=== PATIENT | male | born 1980 | race African-American/Black ===

== ENCOUNTER 2021-06-28 18:56 | Emergency (ER) | payer MEDICAID ==
[2021-06-28 19:07] VITALS: BP 138/81
--- NOTE | 2021-06-28 19:28 | ED Physician Documentation ---
PD HPI FOCAL NEURO - Stated complaint Stated Complaint: HEAD PX/DIZZY - Chief complaint Chief Complaint: Neuro - History obtained from History obtained from: Patient - Additional information Additional information: Otherwise healthy 41-year-old gentleman quit drinking about 3 weeks ago. He was drinking heavily at the time. Since then he has had odd symptoms including left-sided headaches, dizziness and vertigo, feeling like something is moving in his chest. He notes that his eyes have been red but not yellow. He tried having an alcoholic drink maybe a week ago but immediately made him feel worse so did not drink at all. Since then he has developed a lot of stress having to do with the mother of his child trying to keep his child in [place], that stresses come up over the last few days. We discussed the possibility of carbon monoxide, he does note that he can smell gas inside of his van. Review of Systems Ten Systems: 10 systems reviewed and negative Constitutional: reports: Sweats, Other (No measured fever but he "felt hot" he thinks.). denies: Chills Eyes: reports: Photophobia Nose: denies: Rhinorrhea / runny nose GI: reports: Nausea. denies: Vomiting, Diarrhea PD PAST MEDICAL HISTORY - Past Medical History Past Medical History: No - Past Surgical History Past Surgical History: No - Present Medications Home Medications: Ambulatory Orders Medication Instructions Recorded Confirmed LORazepam [Ativan] 1 mg PO TID PRN #9 tablet 06/28/21 - Allergies Allergies/Adverse Reactions: Allergies Allergy/AdvReac Type Severity Reaction Status Date / Time No Known Drug Allergies Allergy Verified 06/28/21 19:07 - Social History Does the pt smoke?: No Smoking Status: Never smoker Does the pt drink ETOH?: No - Immunizations Immunizations are current?: Yes PD ED PE NORMAL - Vitals Vital signs reviewed: Yes - General General: Alert and oriented X 3, No acute distress - HEENT HEENT: PERRL, EOMI - Neck Neck: Supple, no meningeal sign, No bony TTP - Cardiac Cardiac: RRR, No murmur - Respiratory Respiratory: No respiratory distress, Clear bilaterally - Abdomen Abdomen: Non tender - Derm Derm: Normal color, Warm and dry - Extremities Extremities: No edema, No calf tenderness / cord, Other (No tremor or asterixis) - Neuro Neuro: Alert and oriented X 3, Normal speech Results - Vitals Vitals: Vital Signs - 24 hr 09/03/21 19:02 Temperature 36.9 C Heart Rate 75 Respiratory 16 Rate Blood Pressure 138/81 H O2 Saturation 100 Oxygen O2 Source Room air - Labs Labs: Laboratory Tests 06/28/21 06/28/21 06/28/21 19:33 19:33 19:33 WBC 7.5 RBC 4.40 L Hgb 12.8 L Hct 40.9 L MCV 93.0 MCH 29.1 MCHC 31.3 L RDW 13.3 Plt Count 176 MPV 11.2 Neut # (Auto) 4.1 Lymph # (Auto) 2.5 [place] # (Auto) 0.7 Eos # (Auto) 0.2 Baso # (Auto) 0.0 Absolute Nucleated RBC 0.00 Nucleated RBC % 0.0 VBG Total Hgb 7.4 L VBG Oxyhemoglobin 67 L VBG Carboxyhemoglobin 1.8 H VBG Methemoglobin 0.2 Sodium 134 L Potassium 3.9 Chloride 98 L Carbon Dioxide 26 Anion Gap 10.0 BUN 20 Creatinine 1.3 H Estimated GFR (MDRD) 74 L Glucose 105 H Calcium 9.3 Magnesium 2.2 Total Bilirubin 1.0 AST 24 ALT 35 Alkaline Phosphatase 40 L Total Protein 8.3 H Albumin 4.4 Globulin 3.9 Albumin/Globulin Ratio 1.1 Ethyl Alcohol < 5.0 PD MEDICAL DECISION MAKING - ED course ED course: 41-year-old gentleman is undergoing a lot of stress, initially with alcohol withdrawal and now stress related issues. Differential diagnosis for his symptoms also includes carbon monoxide poisoning, hepatic encephalopathy but there is no evidence of cirrhosis or a toxic carbon monoxide level on his labs. Departure - Departure Disposition: 01 Home, Self Care Clinical Impression: Dizziness Headache Qualifiers: Headache type: tension-type Headache chronicity pattern: acute headache Intractability: not intractable Qualified Code(s): G44.209 - Tension-type headache, unspecified, not intractable Condition: Good Record reviewed to determine appropriate education?: Yes Instructions: ED Headache Tension Prescriptions: LORazepam [Ativan] 1 mg PO TID PRN #9 tablet PRN Reason: Anxiety Comments: Prescription was sent electronically to [id number]. No significant abnormalities tonight, you have mild anemia with a hemoglobin of 12.8, sodium is a hair low at 134, and creatinine just a bit high at 1.3. No evidence of carbon monoxide poisoning. As discussed, your headaches and other symptoms are likely related to initially alcohol withdrawal, but later probably related to stress. I am prescribing you medication to help you sleep for a few days. Do not take it with alcohol and do not drive with it. Take it as little as possible. Return for new or worsening symptoms and follow-up with your doctor.
[2021-06-28 19:36] LABS: BASOPHILS % (AUTO) 0.3 %; EOSINOPHILS # (AUTO) 0.2 10^3/uL (0.0-0.7); EOSINOPHILS % (AUTO) 3.2 %; HCT - HEMATOCRIT 40.9 % (42.0-52.0); HGB - HEMOGLOBIN 12.8 g/dL (14.0-18.0); LYMPHOCYTES # (AUTO) 2.5 10^3/uL (1.5-3.5); LYMPHOCYTES % (AUTO) 33.3 %; MEAN CORPUSCULAR HEMOGLOBIN 29.1 pg (27.0-31.0); MEAN CORPUSCULAR HGB CONC 31.3 g/dL (32.0-36.0); MEAN PLATELET VOLUME 11.2 fL (7.4-11.4); MONOCYTES # (AUTO) 0.7 10^3/uL (0.0-1.0); MONOCYTES % (AUTO) 8.7 %; NEUTROPHILS # (AUTO) 4.1 10^3/uL (1.5-6.6); NEUTROPHILS % (AUTO) 54.4 %; PLT - PLATELET COUNT 176 10^3/uL (130-450); RED CELL DISTRIBUTION WIDTH 13.3 % (12.0-15.0); WHITE BLOOD COUNT 7.5 x10^3/uL (4.8-10.8)
[2021-06-28 19:40] LABS: HEMOGLOBIN TOTAL, VENOUS WB 7.4 g/dL (12.0-18.0)
[2021-06-28 19:41] LABS: CARBOXYHEMOGLOBIN VENOUS 1.8 % (0-1.5); METHEMOGLOBIN VENOUS 0.2 % (0-1.5)
[2021-06-28 19:52] LABS: ALBUMIN 4.4 g/dL (3.2-5.5); ALBUMIN/GLOBULIN RATIO 1.1 (1.0-2.2); ALKALINE PHOSPHATASE 40 IU/L (42-121); ALT ALANINE AMINOTRANSFERASE 35 IU/L (10-60); AST ASPARTATE AMINOTRANSFERASE 24 IU/L (10-42); BUN - BLOOD UREA NITROGEN 20 mg/dL (6-20); CALCIUM 9.3 mg/dL (8.5-10.3); CARBON DIOXIDE - CO2 26 mmol/L (21-32); CHLORIDE 98 mmol/L (101-111); CREATININE 1.3 mg/dL (0.6-1.2); ETOH - ETHANOL < 5.0 mg/dL; GFR - MDRD 74 (>89); GLUCOSE 105 mg/dL (70-100); MAGNESIUM 2.2 mg/dL (1.7-2.8); POTASSIUM 3.9 mmol/L (3.5-5.0); SODIUM 134 mmol/L (135-145); TOTAL PROTEIN 8.3 g/dL (6.7-8.2)
[2021-06-28] MEDS ORDERED: LORazepam 1 MG TABLET PO STA (20:16)
== END 2021-06-28 20:25 | disposition home or self-care (01) ==
LOC: ED 18:56
DX: G44.209 Tension-type headache, unspecified, not intractable (principal); R42 Dizziness and giddiness; Z63.79 Other stressful life events affecting family and household
CPT/HCPCS: 36415; 80053; 80320; 82375; 83735; 85025; 93005; 99283; 99284; J8499